=== PATIENT | male | born 1955 | race Caucasian/White ===

== ENCOUNTER 2017-03-10 08:03 | Outpatient (CLI) | payer BC ==
[2017-03-10 18:46] LABS: CHOL/HDL RATIO 2.8 (<5.0); CHOLESTEROL 202 mg/dL; HDL CHOLESTEROL 71 mg/dL; LDL/HDL RATIO 1.7 (<3.6); TRIGLYCERIDES 47 mg/dL; VLDL CHOLESTEROL 9 mg/dL
[2017-03-10 18:52] LABS: PSA TOTAL 2.94 ng/mL (0.000-2.000)
[2017-03-12 10:29] LABS: PSA FREE 0.45 ng/mL (0.16-2.81)
== END 2017-03-10 08:04 | disposition home or self-care (01) ==
LOC: LAB.R 08:03
PROVIDERS: ATTEND Internal Medicine
DX: R97.20 Elevated prostate specific antigen [PSA] (principal); Z72.89 Other problems related to lifestyle; E78.2 Mixed hyperlipidemia
CPT/HCPCS: 80061; 84153; 84154; 86803

== ENCOUNTER 2017-07-17 13:30 | Outpatient (CLI) | payer BC | END 2017-07-17 13:31 | disposition home or self-care (01) | LOC: LAB.R 13:30 | PROVIDERS: ATTEND Physician Assistant | DX: R97.20 Elevated prostate specific antigen [PSA] (principal) | CPT/HCPCS: 84153 ==

== ENCOUNTER 2017-09-03 14:47 | Outpatient (CLI) | payer BC ==
[2017-09-03 16:39] LABS: PSA FREE 0.461 ng/mL (0.16-2.81)
[2017-09-03 17:16] LABS: PSA TOTAL 3.02 ng/mL (0.000-2.000)
== END 2017-09-03 14:48 | disposition home or self-care (01) ==
LOC: LAB.R 14:47
PROVIDERS: ATTEND Physician Assistant
DX: Z12.5 Encounter for screening for malignant neoplasm of prostate (principal)
CPT/HCPCS: 84153; 84154

== ENCOUNTER 2017-12-08 08:00 | Outpatient (CLI) | payer BC, OTHER ==
[2017-12-08 13:08] LABS: PSA FREE 0.51 ng/mL (0.16-2.81)
[2017-12-08 13:09] LABS: PSA TOTAL 2.78 ng/mL (0.000-2.000)
== END 2017-12-08 08:01 | disposition home or self-care (01) ==
LOC: LAB.R 08:00
PROVIDERS: ATTEND Physician Assistant
DX: R97.20 Elevated prostate specific antigen [PSA] (principal)
CPT/HCPCS: 84154

== ENCOUNTER 2018-04-06 09:10 | Outpatient (CLI) | payer OTHER ==
[2018-04-06 13:15] LABS: BASOPHILS # (AUTO) 0.1 10^3/uL (0.0-0.1); BASOPHILS % (AUTO) 0.8 %; EOSINOPHILS # (AUTO) 0.3 10^3/uL (0.0-0.7); EOSINOPHILS % (AUTO) 5.4 %; HGB - HEMOGLOBIN 15.3 g/dL (14.0-18.0); LYMPHOCYTES # (AUTO) 1.5 10^3/uL (1.5-3.5); LYMPHOCYTES % (AUTO) 24.7 %; MEAN CORPUSCULAR HGB CONC 33.2 g/dL (32.0-36.0); MEAN CORPUSCULAR VOLUME 93.4 fL (80.0-94.0); MEAN PLATELET VOLUME 8.9 fL (7.4-11.4); MONOCYTES # (AUTO) 0.5 10^3/uL (0.0-1.0); MONOCYTES % (AUTO) 8.7 %; NEUTROPHILS # (AUTO) 3.7 10^3/uL (1.5-6.6); NEUTROPHILS % (AUTO) 60.4 %; PLT - PLATELET COUNT 205 10^3/uL (130-450); RED BLOOD COUNT 4.93 10^6/uL (4.70-6.10); RED CELL DISTRIBUTION WIDTH 13.4 % (12.0-15.0); WHITE BLOOD COUNT 6.1 x10^3/uL (4.8-10.8)
[2018-04-06 13:31] LABS: ALBUMIN 4.2 g/dL (3.2-5.5); ALBUMIN/GLOBULIN RATIO 1.4 (1.0-2.2); ALKALINE PHOSPHATASE 68 IU/L (42-121); ALT ALANINE AMINOTRANSFERASE 28 IU/L (10-60); AST ASPARTATE AMINOTRANSFERASE 28 IU/L (10-42); BILIRUBIN,TOTAL 1.6 mg/dL (0.2-1.0); BUN - BLOOD UREA NITROGEN 13 mg/dL (6-20); CARBON DIOXIDE - CO2 28 mmol/L (21-32); CHLORIDE 100 mmol/L (101-111); CHOL/HDL RATIO 3.3 (<5.0); CHOLESTEROL 243 mg/dL; CREATININE 0.8 mg/dL (0.6-1.2); GFR - MDRD 97 (>89); GLUCOSE 95 mg/dL (70-100); HDL CHOLESTEROL 74 mg/dL; LDL CHOLESTEROL,CALCULATED 155 mg/dL; LDL/HDL RATIO 2.1 (<3.6); SODIUM 134 mmol/L (135-145); TOTAL PROTEIN 7.3 g/dL (6.7-8.2); VLDL CHOLESTEROL 14 mg/dL
[2018-04-06 13:51] LABS: PSA FREE 0.5 ng/mL (0.16-2.81)
[2018-04-06 13:52] LABS: PSA TOTAL 3.64 ng/mL (0.000-2.000)
== END 2018-04-06 09:11 | disposition home or self-care (01) ==
LOC: LAB.R 09:10
PROVIDERS: ATTEND Internal Medicine
DX: Z00.01 Encounter for general adult medical examination with abnormal findings (principal); E78.5 Hyperlipidemia, unspecified; Z87.898 Personal history of other specified conditions
CPT/HCPCS: 80053; 80061; 83721; 84154; 85025

== ENCOUNTER → 2018-07-14 | Outpatient (CLI) | payer OTHER ==
[2018-07-14 13:11] LABS: PSA FREE 0.6 ng/mL (0.16-2.81)
[2018-07-14 13:12] LABS: PSA TOTAL 3.47 ng/mL (0.000-2.000)
== END ==
LOC: LAB.R 09:05
PROVIDERS: ATTEND Internal Medicine
DX: R03.0 Elevated blood-pressure reading, without diagnosis of hypertension (principal)
CPT/HCPCS: 84154

== ENCOUNTER 2018-08-20 08:52 | Day surgery (SDC) | payer MEDICARE, OTHER ==
[~2018-08-20 08:52] MED LIST: BRIMONIDINE 0.2% OPHTH DROPS 5 ML ONE; BSS/LIDOCAINE/EPINEPHRINE 1 ML SYRINGE ONE; EPINEPHrine 1 MG/ML AMP ONE; TIMOLOL 0.5% OPHTH DROPS ONE; TRIAMCIN/MOXIFLOX OPHTHALMIC 0.6 ML VIAL IO ONE; VANCOMYCIN OPHTHALMI 8MG/0.8ML 8 MG/0.8 ML SYRINGE IO ONE
[2018-08-20] MEDS ORDERED: LACTATED RINGERS 500 ML IV ONE (09:05)
[2018-08-20] MEDS ORDERED: KETOROLAC 0.45% OPHTH DROPS LEFTEYE ONE (09:15)
[2018-08-20] MEDS ORDERED: PHENYLEPHRINE 2.5% OPHTH 2 ML DROPS LEFTEYE ONE (09:15)
[2018-08-20] MEDS ORDERED: PROPARACAINE 0.5% OPHTH DROPS 15 ML LEFTEYE ONE ×2 (09:15→10:16)
[2018-08-20] MEDS ORDERED: CYCLOPENTOLATE 1% OPHTH DROPS 2 ML LEFTEYE ONE (09:15)
--- NOTE | 2018-08-20 09:39 | ANESTHESIA ---
Pre-Anesthesia VS, & Labs - Diagnosis Left eye senile combined cataract - Procedure Left eye extraction of cataract with IOL implant Vital Signs: Temp Pulse Resp BP Pulse Ox 36.6 C 72 18 140/70 H 100 08/20/18 09:13 08/20/18 09:13 08/20/18 09:13 08/20/18 09:13 08/20/18 09:13 Height 5 ft 7 in Weight (kg) 63.4 kg - NPO Last Fluid Intake: 0640 CL Home Medications and Allergies Home Medications: Ambulatory Orders No Known Home Medications 08/19/18 No Known Home Medications 08/19/18 Allergies/Adverse Reactions: Allergies Allergy/AdvReac Type Severity Reaction Status Date / Time No Known Drug Allergies Allergy Verified 08/19/18 13:25 Anes History & Medical History - Medical History Cardiovascular: reports: None Pulmonary: reports: None Gastrointestinal: reports: None Urinary: reports: None Neuro: reports: None Musculoskeletal: reports: Osteoarthritis Endocrine/Autoimmune: reports: None Skin: reports: None Smoking Status: Never smoker Psychosocial: reports: Alcohol (1-2 glasses of wine per night) - Surgical History General: Colonoscopy Exam General: Alert, Oriented x3, Cooperative, No acute distress Dental: WNL Mouth Openin Fingerbreadth Neck Mobility: Normal Mallampati classification: II Thyromental Distance: 4-6 cm Respiratory: Lungs clear, Normal breath sounds, No respiratory distress, No accessory muscle use Cardiovascular: Regular rate Mental/Cognitive Status: Alert/Oriented X3, Normal for patient Plan Anesthesia Type: MAC Consent for Procedure(s) Verified and Reviewed: Yes Code Status: Attempt Resuscitation ASA classification: 1-Healthy patient Is this case an emergency?: No
[2018-08-20] MEDS ORDERED: MIDAZOLAM 2 MG/2 ML VIAL IVP ONE (10:06)
[2018-08-20] MEDS ORDERED: VANCOMYCIN OPHTHALMI 8MG/0.8ML 8 MG/0.8 ML SYRINGE IO ONE ×2 (10:14)
[2018-08-20] MEDS ORDERED: EPINEPHrine 1 MG/ML AMP IR ONE (10:15)
[2018-08-20] MEDS ORDERED: BRIMONIDINE 0.2% OPHTH DROPS 5 ML OPTH ONE (10:15)
[2018-08-20] MEDS ORDERED: TRIAMCIN/MOXIFLOX OPHTHALMIC 0.6 ML VIAL IO ONE (10:15)
[2018-08-20] MEDS ORDERED: CHONDR SULF/HYALURONATE SYRINGE IO ONE (10:15)
[2018-08-20] MEDS ORDERED: TIMOLOL 0.5% OPHTH DROPS OPTH ONE (10:15)
[2018-08-20] MEDS ORDERED: BSS/LIDOCAINE/EPINEPHRINE 1 ML SYRINGE IO ONE ×2 (10:16)
[2018-08-20 10:49] VITALS: BP 109/70
--- NOTE | 2018-08-20 12:09 | OPERATIVE REPORT ---
DATE OF SERVICE: 08/20/2018 Physician: Florin Carrillo MD PREOPERATIVE DIAGNOSIS: Visually significant cataract, left eye. This is his first cataract surgery . POSTOPERATIVE DIAGNOSIS: Visually significant cataract, left eye. This is his first cataract surger y. NAME OF PROCEDURE: Phacoemulsification with posterior chamber intraocular lens implant, left eye. SURGEON: Florin Carrillo MD ANESTHESIA: Monitored anesthesia care. COMPLICATIONS: None. OPERATIVE INDICATIONS: This is a 63-year-old man with progressive vision loss in the left eye due to 3-4+ nuclear sclerotic cataract. Best corrected visual acuity was 20/40 with glare to 20/400 in the left eye. Indications for surgery were difficulty seeing words on the computer screen, difficulty r eading; difficulty seeing words closed captions or game scores on TV and difficulty seeing street sig ns, difficulty driving in low light or at night, difficulty driving at night because of headlights fr om other vehicles, difficulty with glare or bright lights in any situation, and decreased acuity with firearms. He was consented at length concerning risks and benefits of cataract surgery, after which he expressed a desire to proceed with surgery. OPERATIVE PROCEDURE: The patient was taken to OR #3 and placed under monitored anesthesia care. A s urgical timeout was conducted confirming correct patient, correct procedure, and correct surgical sit e. He was given topical anesthesia and prepped and draped in the usual sterile fashion. The eye was entered at the 6 and 3 o'clock positions. Intracameral Shugarcaine was injected into the anterior c hamber, followed by Viscoat. A continuous-tear curvilinear capsulorrhexis was performed. The nucleu s was hydrodissected and phacoemulsified. The cortex was evacuated using automated infusion and aspi ration. Provisc was injected in the capsular bag, and a 14.5 diopter intraocular lens inserted in th e bag. Approximately 0.8 mL of a mixture of triamcinolone, moxifloxacin, and vancomycin was injected subconjunctivally in the superior quadrant for infection and inflammation prophylaxis. I and A was used to evacuate the viscoelastic material, His eye was inflated to physiologic pressure using ede nced salt solution and found to be watertight. The patient was taken from the operating room in good condition and given postoperative instructions. TD: 08/20/2018 10:49
== END 2018-08-20 08:53 | disposition home or self-care (01) ==
LOC: SDS 08:52
PROVIDERS: ATTEND Ophthalmology
PROC: 08RK3JZ Replacement of Left Lens with Synthetic Substitute, Percutaneous Approach (ICD-10-PCS; principal; 2018-08-20 10:00)
DX: H25.12 Age-related nuclear cataract, left eye (principal)
CPT/HCPCS: 66984; A9270; V2632

== ENCOUNTER 2018-09-17 06:16 | Day surgery (SDC) | payer MEDICARE ==
[~2018-09-17 06:16] MED LIST changes: -BRIMONIDINE 0.2% OPHTH DROPS 5 ML ONE; -BSS/LIDOCAINE/EPINEPHRINE 1 ML SYRINGE ONE; +CYCLOPENTOLATE 1% OPHTH DROPS 2 ML ONE; -EPINEPHrine 1 MG/ML AMP ONE; +KETOROLAC 0.45% OPHTH DROPS ONE; +LIDOCAINE-MPF 2% 5 ML VIAL IM ONE; +MIDAZOLAM 2 MG/2 ML VIAL IVP ONE; +PHENYLEPHRINE 2.5% OPHTH 2 ML DROPS ONE; +PROPARACAINE 0.5% OPHTH DROPS 15 ML ONE; -TIMOLOL 0.5% OPHTH DROPS ONE; -TRIAMCIN/MOXIFLOX OPHTHALMIC 0.6 ML VIAL IO ONE; -VANCOMYCIN OPHTHALMI 8MG/0.8ML 8 MG/0.8 ML SYRINGE IO ONE; +fentaNYL 100 MCG/2 ML VIAL IVP ONE
[2018-09-17] MEDS ORDERED: KETOROLAC 0.45% OPHTH DROPS RIGHTEYE ONE (06:40)
[2018-09-17] MEDS ORDERED: PHENYLEPHRINE 2.5% OPHTH 2 ML DROPS RIGHTEYE ONE (06:40)
[2018-09-17] MEDS ORDERED: PROPARACAINE 0.5% OPHTH DROPS 15 ML RIGHTEYE ONE (06:40)
[2018-09-17] MEDS ORDERED: CYCLOPENTOLATE 1% OPHTH DROPS 2 ML RIGHTEYE ONE (06:40)
[2018-09-17] MEDS ORDERED: LACTATED RINGERS 500 ML IV ONE (06:44)
[2018-09-17] MEDS ORDERED: TIMOLOL 0.5% OPHTH DROPS ONE (07:04)
[2018-09-17] MEDS ORDERED: BRIMONIDINE 0.2% OPHTH DROPS 5 ML ONE (07:04)
[2018-09-17] MEDS ORDERED: TRIAMCIN/MOXIFLOX OPHTHALMIC 0.6 ML VIAL IO ONE ×2 (07:04→07:44)
[2018-09-17] MEDS ORDERED: VANCOMYCIN OPHTHALMI 8MG/0.8ML 8 MG/0.8 ML SYRINGE IO ONE ×2 (07:05→07:45)
[2018-09-17] MEDS ORDERED: BSS/LIDOCAINE/EPINEPHRINE 1 ML SYRINGE ONE (07:05)
--- NOTE | 2018-09-17 07:16 | ANESTHESIA ---
Pre-Anesthesia VS, & Labs - Diagnosis nuclear sclerotic cataract - Procedure right cataract extraction with intraocular lens Vital Signs: Temp Pulse Resp BP Pulse Ox 36.2 C L 72 18 131/80 H 100 09/17/18 06:30 09/17/18 06:30 09/17/18 06:30 09/17/18 06:30 09/17/18 06:30 Height 5 ft 7 in Weight (kg) 64 kg - NPO >8 hours Home Medications and Allergies No Known Home Medications 08/19/18 Allergies/Adverse Reactions: Allergies Allergy/AdvReac Type Severity Reaction Status Date / Time No Known Drug Allergies Allergy Verified 08/19/18 13:25 Anes History & Medical History - Anesthetic History Anesthesia Complications: reports: No previous complications - Medical History Cardiovascular: reports: None Pulmonary: reports: None Gastrointestinal: reports: None Urinary: reports: None Neuro: reports: None Musculoskeletal: reports: Osteoarthritis Endocrine/Autoimmune: reports: None Skin: reports: None Smoking Status: Never smoker - Surgical History General: Colonoscopy Eyes Ears Nose Throat (EENT): Cataracts Exam General: Alert, Oriented x3 Dental: Partials Upper (out) Mallampati classification: II Respiratory: Lungs clear Cardiovascular: Regular rate Plan Anesthesia Type: MAC Consent for Procedure(s) Verified and Reviewed: Yes Code Status: Attempt Resuscitation ASA classification: 2-Mild systemic disease Is this case an emergency?: No
[2018-09-17] MEDS ORDERED: BRIMONIDINE 0.2% OPHTH DROPS 5 ML OPTH ONE (07:42)
[2018-09-17] MEDS ORDERED: EPINEPHrine 1 MG/ML AMP IVP ONE (07:42)
[2018-09-17] MEDS ORDERED: TIMOLOL 0.5% OPHTH DROPS OPTH ONE (07:43)
[2018-09-17] MEDS ORDERED: CHONDR SULF/HYALURONATE SYRINGE IO ONE (07:43)
[2018-09-17] MEDS ORDERED: BSS/LIDOCAINE/EPINEPHRINE 1 ML SYRINGE IO ONE (07:43)
[2018-09-17 08:17] VITALS: BP 105/62
--- NOTE | 2018-09-17 09:26 | PROCEDURE REPORT ---
DATE OF SERVICE: 09/17/2018 Physician: Folrin Carrillo MD PREOPERATIVE DIAGNOSIS: Visually significant cataract, right eye. Cataract surgery was performed on the left eye on 08/20/2018. POSTOPERATIVE DIAGNOSIS: Visually significant cataract, right eye. Cataract surgery was performed o n the left eye on 08/20/2018. PROCEDURE: Phacoemulsification with posterior chamber intraocular lens implant, right eye. SURGEON: Florin Carrillo. ANESTHESIA: Monitored anesthesia care. COMPLICATIONS: None. OPERATIVE INDICATIONS: This is a 63-year-old man with progressive vision loss in the right eye due t o 2+ nuclear sclerotic cataract. Best corrected visual acuity was 20/20 with glare to 20/80 in the r ight eye. Indications for surgery are difficulty seeing street signs, difficulty driving in low ligh t or at night, difficulty driving at night because of headlights from other vehicles, and difficulty with glare or bright lights in any situation. He was consented at length concerning risks and benefi ts of cataract surgery, after which he expressed his desire to proceed with surgery. OPERATIVE PROCEDURE: The patient was taken into OR #3 and placed under monitored anesthesia care. A surgical timeout was conducted confirming correct patient, correct procedure, and correct surgical s ite. He was given topical anesthesia and then prepped and draped in the usual sterile fashion. The eye was entered at the 12 and 9 o'clock positions. Intracameral Shugarcaine was injected into the an terior chamber, followed by Viscoat. A continuous-tear curvilinear capsulorrhexis was performed. Th e nucleus was hydrodissected and phacoemulsified. The cortex was evacuated using automated infusion and aspiration. Provisc was injected into the capsular bag, and a 15.5 diopter intraocular lens inse rted in the bag. Approximately 0.8 mL of a mixture of triamcinolone, moxifloxacin, and vancomycin wa s injected subconjunctivally in the superior quadrant for infection and inflammation prophylaxis. I and A, was used to evacuate the viscoelastic material. The eye was inflated to physiologic pressure using balanced salt solution and found to be watertight. The patient was taken from the operating ro om in good condition and given postoperative instructions. TD: 09/17/2018 08:12
== END 2018-09-17 06:17 | disposition home or self-care (01) ==
LOC: SDS 06:16
PROVIDERS: ATTEND Ophthalmology
PROC: 08RJ3JZ Replacement of Right Lens with Synthetic Substitute, Percutaneous Approach (ICD-10-PCS; principal; 2018-09-17 07:30)
DX: H25.11 Age-related nuclear cataract, right eye (principal)
CPT/HCPCS: 66984; A9270; J3490; V2632

== ENCOUNTER 2019-02-26 13:53 | Outpatient (CLI) | payer MEDICARE | END 2019-02-26 23:59 | disposition home or self-care (01) | LOC: LAB 13:53 | PROVIDERS: ATTEND Family Medicine | DX: Z12.5 Encounter for screening for malignant neoplasm of prostate (principal) | CPT/HCPCS: 84153 ==

== ENCOUNTER 2019-04-16 07:44 | Outpatient (CLI) | payer MEDICARE ==
[2019-04-16 09:02] LABS: PSA FREE 0.405 ng/mL (0.16-2.81)
[2019-04-16 09:03] LABS: PSA TOTAL 3.229 ng/mL (0.000-2.000)
== END 2019-04-16 07:45 | disposition home or self-care (01) ==
LOC: LAB 07:44
PROVIDERS: ATTEND Family Medicine
DX: R97.20 Elevated prostate specific antigen [PSA] (principal)
CPT/HCPCS: 36415; 84153; 84154

== ENCOUNTER 2019-08-04 13:03 | Outpatient (CLI) | payer MEDICARE ==
[2019-08-04 14:05] LABS: PSA TOTAL 3.406 ng/mL (0.000-2.000)
[2019-08-04 14:43] LABS: PSA FREE 0.55 ng/mL (0.16-2.81)
== END 2019-08-04 13:04 | disposition home or self-care (01) ==
LOC: LAB 13:03
PROVIDERS: ATTEND Family Medicine
DX: N40.0 Benign prostatic hyperplasia without lower urinary tract symptoms (principal)
CPT/HCPCS: 36415; 84153; 84154

== ENCOUNTER 2020-03-09 08:24 | Outpatient (CLI) | payer MEDICARE ==
[2020-03-09 09:14] LABS: THYROID STIMULATING HORMONE 1.88 uIU/mL (0.34-5.60)
[2020-03-09 09:16] LABS: FREE T3 3.15 pg/mL (2.5-3.9); FREE T4 (FREE THYROXINE) 0.67 ng/dL (0.58-1.64)
[2020-03-09 09:36] LABS: PSA FREE 0.55 ng/mL (0.16-2.81)
[2020-03-09 09:37] LABS: PSA TOTAL 3.53 ng/mL (0.000-2.000)
== END 2020-03-09 08:25 | disposition home or self-care (01) ==
LOC: LAB 08:24
PROVIDERS: ATTEND Family Medicine
DX: E78.5 Hyperlipidemia, unspecified (principal); D48.9 Neoplasm of uncertain behavior, unspecified; N40.0 Benign prostatic hyperplasia without lower urinary tract symptoms; Z80.0 Family history of malignant neoplasm of digestive organs; R03.0 Elevated blood-pressure reading, without diagnosis of hypertension; Z12.5 Encounter for screening for malignant neoplasm of prostate; R97.20 Elevated prostate specific antigen [PSA]
CPT/HCPCS: 36415; 84153; 84154; 84439; 84443; 84481

== ENCOUNTER 2021-05-21 06:59 | Outpatient (CLI) | payer MEDICARE ==
[2021-05-21 07:28] LABS: BASOPHILS # (AUTO) 0.1 10^3/uL (0.0-0.1); BASOPHILS % (AUTO) 0.9 %; EOSINOPHILS # (AUTO) 0.3 10^3/uL (0.0-0.7); EOSINOPHILS % (AUTO) 3.9 %; HCT - HEMATOCRIT 45.6 % (42.0-52.0); HGB - HEMOGLOBIN 15.2 g/dL (14.0-18.0); LYMPHOCYTES % (AUTO) 29.6 %; MEAN CORPUSCULAR HGB CONC 33.3 g/dL (32.0-36.0); MEAN CORPUSCULAR VOLUME 93.1 fL (80.0-94.0); MEAN PLATELET VOLUME 9.9 fL (7.4-11.4); MONOCYTES # (AUTO) 0.6 10^3/uL (0.0-1.0); MONOCYTES % (AUTO) 9.6 %; NEUTROPHILS # (AUTO) 3.7 10^3/uL (1.5-6.6); NEUTROPHILS % (AUTO) 55.7 %; PLT - PLATELET COUNT 237 10^3/uL (130-450); RED CELL DISTRIBUTION WIDTH 13.1 % (12.0-15.0); WHITE BLOOD COUNT 6.7 x10^3/uL (4.8-10.8)
[2021-05-21 07:36] LABS: ALBUMIN 4.1 g/dL (3.2-5.5); ALBUMIN/GLOBULIN RATIO 1.5 (1.0-2.2); ALKALINE PHOSPHATASE 86 IU/L (42-121); ALT ALANINE AMINOTRANSFERASE 22 IU/L (10-60); AST ASPARTATE AMINOTRANSFERASE 22 IU/L (10-42); BILIRUBIN,TOTAL 0.8 mg/dL (0.2-1.0); BUN - BLOOD UREA NITROGEN 16 mg/dL (6-20); CARBON DIOXIDE - CO2 25 mmol/L (21-32); CHLORIDE 105 mmol/L (101-111); CHOL/HDL RATIO 3.1 (<5.0); CHOLESTEROL 214 mg/dL; CREATININE 0.8 mg/dL (0.6-1.2); GFR - MDRD 96 (>89); GLUCOSE 105 mg/dL (70-100); HDL CHOLESTEROL 68 mg/dL; LDL CHOLESTEROL,CALCULATED 135 mg/dL; POTASSIUM 4.1 mmol/L (3.5-5.0); SODIUM 139 mmol/L (135-145); TOTAL PROTEIN 6.9 g/dL (6.7-8.2); TRIGLYCERIDES 53 mg/dL; VLDL CHOLESTEROL 11 mg/dL
[2021-05-21 07:47] LABS: THYROID STIMULATING HORMONE 1.92 uIU/mL (0.34-5.60)
[2021-05-21 08:06] LABS: PSA TOTAL 3.91 ng/mL (0.000-2.000)
[2021-05-21 08:32] LABS: PSA FREE 0.65 ng/mL (0.16-2.81)
== END 2021-05-21 07:00 | disposition home or self-care (01) ==
LOC: LAB 06:59
PROVIDERS: ATTEND Family Medicine
DX: Z00.00 Encounter for general adult medical examination without abnormal findings (principal); M19.90 Unspecified osteoarthritis, unspecified site; N40.0 Benign prostatic hyperplasia without lower urinary tract symptoms
CPT/HCPCS: 36415; 80053; 80061; 83721; 84153; 84154; 84443; 85025

== ENCOUNTER 2021-07-11 12:58 | Outpatient (CLI) | payer MEDICARE | END 2021-07-11 12:59 | disposition home or self-care (01) | LOC: COV 12:58 | PROVIDERS: ATTEND Family Medicine | DX: R05.9 Cough, unspecified (principal); R09.81 Nasal congestion; J34.89 Other specified disorders of nose and nasal sinuses; Z20.822 Contact with and (suspected) exposure to COVID-19 ==

== ENCOUNTER 2022-06-06 07:15 | Outpatient (CLI) | payer MEDICARE ==
[2022-06-06 07:50] LABS: ALBUMIN 3.8 g/dL (3.2-5.5); ALBUMIN/GLOBULIN RATIO 1.2 (1.0-2.2); ALKALINE PHOSPHATASE 92 IU/L (42-121); ALT ALANINE AMINOTRANSFERASE 19 IU/L (10-60); AST ASPARTATE AMINOTRANSFERASE 20 IU/L (10-42); BUN - BLOOD UREA NITROGEN 15 mg/dL (6-20); CARBON DIOXIDE - CO2 25 mmol/L (21-32); CHLORIDE 107 mmol/L (101-111); CHOL/HDL RATIO 2.8 (<5.0); CHOLESTEROL 197 mg/dL; CREATININE 0.8 mg/dL (0.6-1.2); GFR - MDRD 96 (>89); GLUCOSE 106 mg/dL (70-100); HDL CHOLESTEROL 71 mg/dL; LDL CHOLESTEROL,CALCULATED 118 mg/dL; LDL/HDL RATIO 1.7 (<3.6); SODIUM 140 mmol/L (135-145); TRIGLYCERIDES 41 mg/dL; VLDL CHOLESTEROL 8 mg/dL
[2022-06-06 08:02] LABS: THYROID STIMULATING HORMONE 1.67 uIU/mL (0.34-5.60)
[2022-06-06 08:05] LABS: BASOPHILS # (AUTO) 0.1 10^3/uL (0.0-0.1); BASOPHILS % (AUTO) 0.7 %; EOSINOPHILS # (AUTO) 0.3 10^3/uL (0.0-0.7); EOSINOPHILS % (AUTO) 3.9 %; HGB - HEMOGLOBIN 14.8 g/dL (14.0-18.0); LYMPHOCYTES # (AUTO) 1.6 10^3/uL (1.5-3.5); LYMPHOCYTES % (AUTO) 21.5 %; MEAN CORPUSCULAR HEMOGLOBIN 30.9 pg (27.0-31.0); MEAN CORPUSCULAR HGB CONC 33.6 g/dL (32.0-36.0); MEAN CORPUSCULAR VOLUME 91.9 fL (80.0-94.0); MEAN PLATELET VOLUME 9.7 fL (7.4-11.4); MONOCYTES # (AUTO) 0.5 10^3/uL (0.0-1.0); MONOCYTES % (AUTO) 7.4 %; NEUTROPHILS # (AUTO) 4.8 10^3/uL (1.5-6.6); NEUTROPHILS % (AUTO) 66.2 %; PLT - PLATELET COUNT 254 10^3/uL (130-450); RED BLOOD COUNT 4.79 10^6/uL (4.70-6.10); RED CELL DISTRIBUTION WIDTH 13.2 % (12.0-15.0); WHITE BLOOD COUNT 7.3 x10^3/uL (4.8-10.8)
[2022-06-06 08:32] LABS: PSA TOTAL 3.8 ng/mL (0.000-2.000)
[2022-06-06 08:58] LABS: PSA FREE 0.44 ng/mL (0.16-2.81)
== END 2022-06-06 07:16 | disposition home or self-care (01) ==
LOC: LAB 07:15
PROVIDERS: ATTEND Family Medicine
DX: E78.5 Hyperlipidemia, unspecified (principal); R03.0 Elevated blood-pressure reading, without diagnosis of hypertension; N40.0 Benign prostatic hyperplasia without lower urinary tract symptoms; E04.9 Nontoxic goiter, unspecified
CPT/HCPCS: 36415; 80053; 80061; 83721; 84153; 84154; 84443; 85025

== ENCOUNTER 2022-08-18 12:54 | Emergency (ER) | payer MEDICARE ==
[2022-08-18 14:21] LABS: BASOPHILS # (AUTO) 0.1 10^3/uL (0.0-0.1); BASOPHILS % (AUTO) 0.7 %; EOSINOPHILS # (AUTO) 0.2 10^3/uL (0.0-0.7); EOSINOPHILS % (AUTO) 2.2 %; HCT - HEMATOCRIT 42.1 % (42.0-52.0); HGB - HEMOGLOBIN 13.7 g/dL (14.0-18.0); LYMPHOCYTES # (AUTO) 1.6 10^3/uL (1.5-3.5); LYMPHOCYTES % (AUTO) 18.5 %; MEAN CORPUSCULAR HEMOGLOBIN 29.8 pg (27.0-31.0); MEAN CORPUSCULAR HGB CONC 32.5 g/dL (32.0-36.0); MEAN CORPUSCULAR VOLUME 91.7 fL (80.0-94.0); MEAN PLATELET VOLUME 9.5 fL (7.4-11.4); MONOCYTES # (AUTO) 0.8 10^3/uL (0.0-1.0); MONOCYTES % (AUTO) 9.5 %; NEUTROPHILS # (AUTO) 5.9 10^3/uL (1.5-6.6); PLT - PLATELET COUNT 233 10^3/uL (130-450); RED BLOOD COUNT 4.59 10^6/uL (4.70-6.10); RED CELL DISTRIBUTION WIDTH 13.3 % (12.0-15.0); WHITE BLOOD COUNT 8.5 x10^3/uL (4.8-10.8)
--- NOTE | 2022-08-18 14:28 | ED Physician Documentation ---
History of Present Illness - Stated complaint Stated Complaint: L SIDE NUMBNESS - Chief complaint Chief Complaint: Neuro - History obtained from History obtained from: Patient - Additonal information Additional information: Patient is a 67-year-old male with no significant past medical history presenting for evaluation of 2 episodes of paresthesia. On Friday he was working in his shop when he had 5 seconds of numbness and tingling to his left arm and leg.He did not have other associated symptoms with it at the time. He denies doing anything particularly stressful or exertional. This morningHe was again working in his shop and had a <5 minEpisode of numbness and tingling to his left face and left arm. He was able to ambulate during this time without any difficulty. He denies having any heaviness or weakness in his arm. He did not have trouble speaking or swallowing. He did not have a headache, chest pain, difficulty breathing.He can just describes a pins and needle sensation during these 2 episodes and they have not recurred. He is currently symptom- free. Review of Systems Constitutional: denies: Fever Nose: denies: Congestion Cardiac: denies: Chest pain / pressure Respiratory: denies: Dyspnea GI: denies: Abdominal Pain, Vomiting, Diarrhea : denies: Dysuria Musculoskeletal: denies: Back pain Neurologic: denies: Focal weakness, Syncope, Headache PD PAST MEDICAL HISTORY - Past Medical History Cardiovascular: None Respiratory: None Neuro: None Endocrine/Autoimmune: None GI: None : None HEENT: None Psych: None Musculoskeletal: Osteoarthritis Derm: None - Past Surgical History Past Surgical History: Yes General: Colonoscopy HEENT: Cataracts - Present Medications Home Medications: Ambulatory Orders Medication Instructions Recorded Confirmed No Known Home Medications 08/19/18 08/19/18 - Allergies Allergies/Adverse Reactions: Allergies Allergy/AdvReac Type Severity Reaction Status Date / Time No Known Drug Allergies Allergy Verified 05/03/22 10:53 - Social History Does the pt smoke?: No Smoking Status: Never smoker Does the pt drink ETOH?: Yes Does the pt have substance abuse?: No - Immunizations Immunizations are current?: Yes PD ED PE NORMAL - General General: Alert and oriented X 3, No acute distress - HEENT HEENT: Atraumatic, PERRL, EOMI, Moist mucous membranes, Pharynx benign - Neck Neck: Supple, no meningeal sign - Cardiac Cardiac: RRR, No murmur - Respiratory Respiratory: No respiratory distress, Clear bilaterally - Abdomen Abdomen: Soft, Non tender - Derm Derm: Warm and dry - Extremities Extremities: No edema - Neuro Neuro: Alert and oriented X 3, creative recruiter 2-12 intact, No motor deficit, No sensory deficit, Normal speech, Other (Normal gait, normal [id number] Bilaterally.) Results - Vitals Vitals: Vital Signs - 24 hr 08/18/22 08/18/22 13:00 15:38 Temperature 36.7 C Heart Rate 79 85 Respiratory 16 16 Rate Blood Pressure 141/82 H 134/78 H O2 Saturation 100 100 Oxygen O2 Source Room air - EKG (time done) 1523 Rate: Rate (enter#) (73) Rhythm: NSR [place]: Normal Ischemia: No: ST elevation c/w ischemia - Labs Labs: Laboratory Tests 08/18/22 08/18/22 08/18/22 13:08 14:15 14:15 WBC 8.5 RBC 4.59 L Hgb 13.7 L Hct 42.1 MCV 91.7 MCH 29.8 MCHC 32.5 RDW 13.3 Plt Count 233 MPV 9.5 Neut # (Auto) 5.9 Lymph # (Auto) 1.6 [place] # (Auto) 0.8 Eos # (Auto) 0.2 Baso # (Auto) 0.1 Absolute Nucleated RBC 0.00 Nucleated RBC % 0.0 Sodium 137 Potassium 3.8 Chloride 103 Carbon Dioxide 26 Anion Gap 8.0 BUN 15 Creatinine 0.7 Estimated GFR (MDRD) 112 Glucose 94 POC Whole Bld Glucose 83 Calcium 8.7 Magnesium 2.0 Total Bilirubin 0.7 AST 21 ALT 21 Alkaline Phosphatase 94 Total Protein 6.9 Albumin 3.8 Globulin 3.1 Albumin/Globulin Ratio 1.2 PD MEDICAL DECISION MAKING - ED course Complexity details: reviewed results, re-evaluated patient, d/w patient ED course: Patient is a 67-year-old presenting for evaluation of 2 brief episodes of paresthesia to the left side of his body which have resolved prior to arrival.They were each less than 5 minutes.There was no other associated symptoms with it including weakness.Here his neuro exam is normal. He has no symptoms to suggest ACS. His labs were reviewed. CT scan of his brain was obtained to evaluate for bleed or large mass which was negative. There is no MRI or echo available. It is possible that he could have had a very small TIA although he did not have other Associated strokelike symptoms. His EKG is a normal sinus rhythm without signs of an arrhythmia or ectopy. I did recommend that he needs close follow-up with his primary care doctor And in the meanwhile should take a baby aspirin as he has no contraindication. Patient and his are counseled on concerning symptoms to return for. Departure - Departure Disposition: 01 Home, Self Care Clinical Impression: Paresthesia Condition: Stable Instructions: ED Paraesthesias Comments: The exact cause of the paresthesias that you were feeling earlier is unclear.It seems that The tingling sensation has resolved. I do not see other symptoms to suggest an acute stroke.Your EKG is reassuring with a normal rhythm and your labs are normal.I do think you need close follow-up with your primary care doctor as you may need further testing such as an MRI or an ultrasound of your heart. In the meanwhile I would recommend taking a baby aspirin daily. Please return to the ER if you have any worsening symptoms. Discharge Date/Time: 08/18/22 15:43
[2022-08-18 14:46] LABS: ALBUMIN 3.8 g/dL (3.2-5.5); ALBUMIN/GLOBULIN RATIO 1.2 (1.0-2.2); BILIRUBIN,TOTAL 0.7 mg/dL (0.2-1.0); CALCIUM 8.7 mg/dL (8.5-10.3); CREATININE 0.7 mg/dL (0.6-1.2); POTASSIUM 3.8 mmol/L (3.5-5.0); TOTAL PROTEIN 6.9 g/dL (6.7-8.2)
--- NOTE | 2022-08-18 15:19 | CT Report ---
PROCEDURE: HEAD WO INDICATIONS: L sided numbness TECHNIQUE: Noncontrast 4.5 mm thick angled axial sections acquired from the foramen magnum to the vertex. For r adiation dose reduction, the following was used: automated exposure control, adjustment of mA and/or kV according to patient size. COMPARISON: None. FINDINGS: Image quality: Excellent. CSF spaces: Basal cisterns are patent. No extra-axial fluid collections. Ventricles are normal in size and shape. Brain: No midline shift. No intracranial masses or hemorrhage. [place]-white matter interface is norm al. Skull and face: Calvarium and visualized facial bones are intact, without suspicious lesions. Sinuses: Visualized sinuses and mastoids are clear. IMPRESSION: 1. No acute intracranial abnormality. Reviewed by: Nurys Aguayo MD on 08/18/2022 2:17 PM [facility] Approved by: Nurys Aguayo MD on 08/18/2022 2:17 PM [facility] Station ID: [id number]
[2022-08-18 15:38] VITALS: BP 134/78
== END 2022-08-18 15:43 | disposition home or self-care (01) ==
LOC: ED 12:54
DX: R20.2 Paresthesia of skin (principal)
CPT/HCPCS: 36415; 80053; 83735; 85025; 93005; 99282; 99284

== ENCOUNTER 2022-09-25 07:34 | Outpatient (CLI) | payer MEDICARE ==
[2022-09-25 08:17] LABS: CREATININE 0.8 mg/dL (0.6-1.2)
[2022-09-25] MEDS ORDERED: GADOBUTROL 7.5 MMOL/7.5 ML VIAL ONE (09:21)
--- NOTE | 2022-09-25 15:52 | MRI Report ---
PROCEDURE: ANGIO HEAD WO INDICATIONS: TIA TECHNIQUE: Noncontrast axial 3-D [id number] MR angiogram, with 3-dimensional maximum intensity projection (M IP) reformats of the internal carotid arteries and posterior circulation then performed. COMPARISON: MRA brain, MRA neck FINDINGS: Image quality: Excellent. Anterior circulation: Intracranial internal carotid arteries demonstrate normal size and intralumina l flow signal. The flow within the paired anterior cerebral arteries is normal and symmetric. The f low within the middle cerebral arteries is normal and symmetric. The anterior communicating artery i s seen. No stenoses, occlusions, or aneurysms. Posterior circulation: Vertebral arteries are not included within the field of view. Basilar artery i s unremarkable. The flow within the posterior cerebral arteries is normal and symmetric. No stenoses , occlusions, or aneurysms. IMPRESSION: No areas of hemodynamically significant stenosis, vascular occlusion or aneurysmal dilation within th e anterior circulation. No areas of hemodynamically significant stenosis, vascular occlusion or aneurysmal dilation within th e posterior circulation, noting vertebral arteries are not included within the [id number]. Reviewed by: Laura Branch MD on 09/25/2022 3:50 PM PST Approved by: Laura Branch MD on 09/25/2022 3:50 PM PST Station ID: [id number]
--- NOTE | 2022-09-25 16:02 | MRI Report ---
PROCEDURE: BRAIN W/WO INDICATIONS: TIA CONTRAST: 5.7ml gadavist TECHNIQUE: Noncontrast axial T1 spin echo, axial T2 fast spin echo, sagittal and axial FLAIR, coronal T2 fast sp in echo, axial gradient echo, axial diffusion and ADC through the brain. After the administration of contrast, axial and coronal T1 spin echo with fat saturation through the brain. COMPARISON: None. FINDINGS: Image quality: Excellent. CSF spaces: Basal cisterns are patent. No extra-axial fluid collections. Ventricles are normal in size and shape. Brain: Innumerable foci of increased susceptibility artifact in the bilateral all cerebral and cereb ellar hemispheres, predominantly at the [place]-white matter junctions. Mild cerebral volume loss for ag e. There is severe periventricular white matter chronic small vessel ischemic change. The brainstem appears normal. Diffusion-weighted images demonstrate no acute ischemic insults. No chronic ischem ic insults. Normal intravascular flow voids are present. Skull and face: Calvarial marrow is normal in signal. Orbits appear normal. Sinuses: Sinuses and mastoids appear clear. IMPRESSION: No acute intracranial abnormality. Innumerable foci of susceptibility artifact at the mesa-white matter junction of both cerebral hemisp heres, highly suspicious for amyloid angiopathy. Severe chronic microvascular ischemic changes. Mild global cerebral volume loss. Reviewed by: Daniel Nino MD on 09/25/2022 4:00 PM [facility] Approved by: Daniel Nino MD on 09/25/2022 4:00 PM [facility] Station ID: [id number]
--- NOTE | 2022-09-25 16:57 | MRI Report ---
PROCEDURE: ANGIO NECK W/WO INDICATIONS: TIA CONTRAST: 5.7ml gadavist TECHNIQUE: Axial and sagittal balanced GE through the neck. Coronal dynamic MRA after the administration of con trast in the arterial and venous phases, with rotating 3-dimensional maximum intensity projection (DE P) reformats constructed from subtraction images. COMPARISON: Correlation is made with the accompanying brain MRI and head MR angiogram, 09/25/2022. FINDINGS: Image quality: Excellent. Carotid system: Great vessels demonstrate a conventional anatomy as they arise from the aortic arch. The origins of the common carotid arteries appear normal. The calibers and courses of the common c arotid arteries are likewise normal. The carotid bifurcations appear normal bilaterally. The sports management internship al carotid arteries are widely patent up to the [place]. Posterior circulation: The origin of the left vertebral artery is not well seen. The left vertebral a rtery is diminutive. The origin of the right vertebral artery is normal. There is a normal-appearing right vertebral artery. Miscellaneous: Subclavian arteries are patent throughout. Pre-contrast imag es through the neck demonstrate no soft tissue abnormalities. IMPRESSION: Normal-appearing carotids. The origin of the left vertebral artery is not well seen and the left vertebral artery is diminutive compared to the normal appearing right vertebral artery. Reviewed by: Atif Zaidi MD on 09/25/2022 3:52 PM [facility] Approved by: Atif Zaidi MD on 09/25/2022 3:52 PM [facility] Station ID: [id number]
[2022-09-25] MEDS ORDERED: GADOBUTROL 7.5 MMOL/7.5 ML VIAL IVP ONE (17:03)
== END 2022-09-25 07:35 | disposition home or self-care (01) ==
LOC: LAB 07:34
PROVIDERS: ATTEND Nurse Practitioner
DX: G45.9 Transient cerebral ischemic attack, unspecified (principal); R94.02 Abnormal brain scan; I67.82 Cerebral ischemia; G31.89 Other specified degenerative diseases of nervous system; I34.0 Nonrheumatic mitral (valve) insufficiency; I51.7 Cardiomegaly
CPT/HCPCS: 36415; 70544; 70549; 70553; 82565; 93306; A9585

== ENCOUNTER 2023-06-19 08:18 | Outpatient (CLI) | payer MEDICARE ==
[2023-06-19 08:37] LABS: BASOPHILS % (AUTO) 0.3 %; EOSINOPHILS # (AUTO) 0.1 10^3/uL (0.0-0.7); EOSINOPHILS % (AUTO) 2.8 %; HCT - HEMATOCRIT 45.4 % (42.0-52.0); LYMPHOCYTES # (AUTO) 1.1 10^3/uL (1.5-3.5); LYMPHOCYTES % (AUTO) 31.2 %; MEAN CORPUSCULAR HEMOGLOBIN 30.6 pg (27.0-31.0); MEAN CORPUSCULAR VOLUME 92.7 fL (80.0-94.0); MEAN PLATELET VOLUME 9.7 fL (7.4-11.4); MONOCYTES # (AUTO) 0.6 10^3/uL (0.0-1.0); MONOCYTES % (AUTO) 17.6 %; NEUTROPHILS # (AUTO) 1.7 10^3/uL (1.5-6.6); NEUTROPHILS % (AUTO) 47.8 %; PLT - PLATELET COUNT 167 10^3/uL (130-450); RED CELL DISTRIBUTION WIDTH 13.4 % (12.0-15.0); WHITE BLOOD COUNT 3.5 x10^3/uL (4.8-10.8)
[2023-06-19 08:58] LABS: ALBUMIN/GLOBULIN RATIO 1.4 (1.0-2.2); ALKALINE PHOSPHATASE 104 IU/L (42-121); ALT ALANINE AMINOTRANSFERASE 21 IU/L (10-60); AST ASPARTATE AMINOTRANSFERASE 23 IU/L (10-42); BILIRUBIN,TOTAL 0.5 mg/dL (0.2-1.0); BUN - BLOOD UREA NITROGEN 13 mg/dL (6-20); CALCIUM 9.1 mg/dL (8.5-10.3); CARBON DIOXIDE - CO2 31 mmol/L (21-32); CHLORIDE 102 mmol/L (101-111); CHOL/HDL RATIO 2.5 (<5.0); CHOLESTEROL 152 mg/dL; CREATININE 0.7 mg/dL (0.6-1.3); GFR - MDRD 111 (>89); GLUCOSE 98 mg/dL (74-104); HDL CHOLESTEROL 60 mg/dL; LDL CHOLESTEROL,CALCULATED 75 mg/dL; LDL/HDL RATIO 1.3 (<3.6); POTASSIUM 4.4 mmol/L (3.5-4.5); SODIUM 138 mmol/L (135-145); TOTAL PROTEIN 6.8 g/dL (6.4-8.9); TRIGLYCERIDES 85 mg/dL (48-352); VLDL CHOLESTEROL 17 mg/dL
[2023-06-19 09:14] LABS: THYROID STIMULATING HORMONE 2.08 uIU/mL (0.34-5.60)
[2023-06-19 09:49] LABS: PSA TOTAL 4.252 ng/mL (0.000-2.000)
== END 2023-06-19 08:19 | disposition home or self-care (01) ==
LOC: LAB 08:18
PROVIDERS: ATTEND Family Medicine
DX: E78.5 Hyperlipidemia, unspecified (principal); I68.0 Cerebral amyloid angiopathy; R20.2 Paresthesia of skin; D12.6 Benign neoplasm of colon, unspecified; R97.20 Elevated prostate specific antigen [PSA]; Z12.5 Encounter for screening for malignant neoplasm of prostate
CPT/HCPCS: 36415; 80053; 80061; 83721; 84153; 84154; 84443; 85025